=== PATIENT | female | born 1990 | race Two or more races ===

== ENCOUNTER 2019-01-19 21:47 | Emergency (ER) | payer MEDICAID, OTHER ==
[~2019-01-19] VITALS: Ht 152.4 cm; Wt 75.3 kg
[2019-01-20 00:34] LABS: Urine Bacteria FEW /hpf (None Seen); Urine Blood 2+ /uL (Negative); Urine Mucus FEW (None Seen); Urine Specific Gravity 1.021 (1.001-1.035); Urine WBC 5 /hpf (0 - 5)
[2019-01-20 01:07] LABS: Basophils # (auto) 0.1 uL; Eosinophils # (auto) 0.1 uL; Hematocrit 45.1 % (36.0-46.0); Hemoglobin 15.3 g/dL (12.2-16.2); Lymphocytes # (auto) 1.4 uL; Lymphocytes % (auto) 25.8 % (10.0-50.0); Mean Corpuscular Hemoglobin 30.4 pg (28.0-32.0); Mean Corpuscular Volume 89.4 fL (80.0-100.0); Monocytes # (auto) 0.3 uL; Monocytes % (auto) 4.8 % (0.0-12.0); Neutrophils # (auto) 3.6 uL; Neutrophils % (auto) 67.4 % (37.0-80.0); Nucleated Red Blood Cells % 0.1 %; Platelet Count (auto) 268 10^3/uL (140-450); Red Blood Cells 5.05 10^6/uL (4.0-5.20); White Blood Cell 5.3 10^3/uL (4.4-10.8)
[2019-01-20 01:24] LABS: Albumin 3.8 g/dL (3.4-5.0); BUN/Creatinine Ratio 12.2; Calcium 8.9 mg/dL (8.5-10.1); Potassium 3.7 mmol/L (3.5-5.1)
[2019-01-20 01:32] LABS: Bilirubin, Total 0.3 mg/dL (0.2-1.0); Total Protein 8.6 g/dL (6.4-8.2)
[2019-01-20 08:31] VITALS: BP 100/56
== END 2019-01-20 08:53 | disposition home or self-care (01) ==
LOC: ER 21:47
DX: O46.91 Antepartum hemorrhage, unspecified, first trimester (principal); Z3A.01 Less than 8 weeks gestation of pregnancy
CPT/HCPCS: 36415; 76801; 80053; 81001; 84702; 85025

== ENCOUNTER 2021-09-24 12:37 | Emergency (ER) | payer MEDICAID ==
[~2021-09-24] VITALS: Ht 165.1 cm; Wt 78.9 kg
[2021-09-24 14:55] LABS: Basophils # (auto) 0.1 10 ^3/uL (0-0.2); Eosinophils # (auto) 0 10 ^3/uL (0-0.8); Hemoglobin 14.9 g/dL (12.2-16.2); Lymphocytes # (auto) 0.7 10 ^3/uL (0.4-5.4); Neutrophils # (auto) 7.3 10 ^3/uL (1.6-8.6)
[2021-09-24 15:02] LABS: Basophils % (auto) 0.8 % (0.0-2.0); Eosinophils % (auto) 0.4 % (0.0-7.0); Hematocrit 42.2 % (36.0-46.0); Lymphocytes % (auto) 8.2 % (10.0-50.0); Mean Corpuscular Hemoglobin 31.4 pg (28.0-32.0); Mean Corpuscular Hgb Conc. 35.3 g/dL (32.0-36.0); Monocytes # (auto) 0.2 10 ^3/uL (0-1.3); Monocytes % (auto) 2.9 % (0.0-12.0); Neutrophils % (auto) 87.7 % (37.0-80.0); Nucleated Red Blood Cells % 0.1 %; Red Blood Cells 4.75 10^6/uL (4.0-5.20); Red Cell Distribution Width 13.3 % (11.8-14.3); White Blood Cell 8.4 10^3/uL (4.4-10.8)
[2021-09-24 15:19] LABS: Albumin 3.4 g/dL (3.4-5.0); BUN/Creatinine Ratio 14.3; Calcium 9.2 mg/dL (8.5-10.1); Potassium 4.5 mmol/L (3.5-5.1)
[2021-09-24 15:22] LABS: Bilirubin, Total 0.3 mg/dL (0.2-1.0); Total Protein 8.6 g/dL (6.4-8.2)
[2021-09-24 18:06] VITALS: BP 127/73
== END 2021-09-24 18:10 | disposition home or self-care (01) ==
LOC: ER 12:37
DX: O20.8 Other hemorrhage in early pregnancy (principal); Z3A.01 Less than 8 weeks gestation of pregnancy
CPT/HCPCS: 36415; 76801; 76817; 80053; 84702; 85025; 86850; 86900; 86901

== ENCOUNTER 2022-02-21 21:50 | Emergency (ER) | payer MEDICAID ==
[~2022-02-21] VITALS: Ht 160 cm; Wt 81.0 kg
[2022-02-21 23:05] LABS: Urine Bacteria FEW /hpf (None Seen); Urine Blood Negative /uL (Negative); Urine Specific Gravity 1.022 (1.001-1.035); Urine WBC 1 /hpf (0 - 5)
[2022-02-22 00:16] LABS: Basophils # (auto) 0 10 ^3/uL (0-0.2); Basophils % (auto) 0.2 % (0.0-2.0); Eosinophils # (auto) 0 10 ^3/uL (0-0.8); Eosinophils % (auto) 0.4 % (0.0-7.0); Hematocrit 41.2 % (36.0-46.0); Hemoglobin 14.1 g/dL (12.2-16.2); Lymphocytes # (auto) 0.9 10 ^3/uL (0.4-5.4); Lymphocytes % (auto) 17.8 % (10.0-50.0); Mean Corpuscular Hemoglobin 30.9 pg (28.0-32.0); Mean Corpuscular Hgb Conc. 34.2 g/dL (32.0-36.0); Mean Corpuscular Volume 90.4 fL (80.0-100.0); Monocytes # (auto) 0.3 10 ^3/uL (0-1.3); Monocytes % (auto) 6.3 % (0.0-12.0); Neutrophils % (auto) 75.3 % (37.0-80.0); Nucleated Red Blood Cells % 0.1 %; Red Blood Cells 4.55 10^6/uL (4.0-5.20); Red Cell Distribution Width 13.2 % (11.8-14.3); White Blood Cell 5.3 10^3/uL (4.4-10.8)
[2022-02-22 00:25] LABS: Albumin 3.4 g/dL (3.4-5.0); BUN/Creatinine Ratio 14.9; Calcium 9.1 mg/dL (8.5-10.1); Potassium 4.2 mmol/L (3.5-5.1)
[2022-02-22 00:27] LABS: Bilirubin, Total 0.3 mg/dL (0.2-1.0); Total Protein 8.1 g/dL (6.4-8.2)
[2022-02-22 02:30] VITALS: BP 109/75
== END 2022-02-22 03:33 | disposition home or self-care (01) ==
LOC: ER 21:53
DX: O20.8 Other hemorrhage in early pregnancy (principal); Z3A.01 Less than 8 weeks gestation of pregnancy
CPT/HCPCS: 36415; 76801; 80053; 81001; 84702; 85025